=== PATIENT | female | born 1955 | race Caucasian/White ===

== ENCOUNTER → 2020-10-08 | Outpatient (CLI) | payer BC, MEDICARE ==
--- NOTE | 2020-10-08 12:52 | REP ---
INDICATION: CONTUSION OF RIGHT FOOT, INITIAL ENCOUNTER. COMPARISON: None. TECHNIQUE: Four views of the right foot. FINDINGS: Four views of the right foot demonstrate soft tissue swelling dorsally over the forefoot.. There is a nondisplaced fracture of the distal and of the 4th metatarsal seen on AP and oblique radiographs. No other metatarsal fracture is seen. Bones, joints, and soft tissues are otherwise intact.. No opaque foreign body noted. IMPRESSION: Distal 4th metatarsal fracture nondisplaced. Associated swelling.. <Electronically signed by Saravanan Jesus > 10/08/20 1524
== END ==
LOC: M RAD 12:08
PROVIDERS: ATTEND Physician Assistant
DX: S90.31XA Contusion of right foot, initial encounter (principal); X58.XXXA Exposure to other specified factors, initial encounter; Y92.89 Other specified places as the place of occurrence of the external cause; Y93.9 Activity, unspecified; Y99.9 Unspecified external cause status